=== PATIENT | male | born 1990 | race African-American/Black ===

== ENCOUNTER 2017-11-18 16:42 | Emergency (ER) | payer MEDICAID ==
[~2017-11-18] VITALS: Ht 195.6 cm; Wt 147.4 kg
[2017-11-18 16:53] VITALS: BP 113/65
[2017-11-18 17:29] VITALS: BP 114/65
== END 2017-11-18 17:29 | disposition home or self-care (01) ==
LOC: MED 16:42
DX: Z48.01 Encounter for change or removal of surgical wound dressing (principal)
CPT/HCPCS: 99283

== ENCOUNTER 2017-12-22 07:34 | Observation (INO) | payer MEDICAID ==
[2017-12-18 16:59] LABS: BASOPHILS # (AUTO) 0.1 K/uL (0.00-0.22); BASOPHILS % (AUTO) 0.7 % (0.0-2.0); EOSINOPHILS # (AUTO) 0.1 K/uL (0-0.4); EOSINOPHILS % (AUTO) 0.5 % (0.0-4.0); HEMATOCRIT 40.6 % (36-52); HEMOGLOBIN 13.2 g/dL (12.0-18.0); LYMPHOCYTES # (AUTO) 4.9 K/uL (2.0-11.5); LYMPHOCYTES % (AUTO) 43.2 % (20.5-51.1); MEAN CORPUSCULAR HEMOGLOBIN 29 pg (27-31); MEAN CORPUSCULAR HGB CONC 32 g/dL (33-37); MEAN CORPUSCULAR VOLUME 90.8 fL (80-94); MONOCYTES # (AUTO) 0.7 K/uL (0.8-1.0); MONOCYTES % (AUTO) 6.3 % (1.7-9.3); NEUTROPHILS # (AUTO) 5.6 K/uL (1.8-7.7); NEUTROPHILS % (AUTO) 49.3 % (42.2-75.2); PLATELET COUNT (AUTO) 277 K/uL (140-450); RED BLOOD CELL COUNT(AUTO) 4.48 MIL/uL (4.20-6.10); WHITE BLOOD COUNT (AUTO) 11.4 K/uL (4.8-10.8)
[2017-12-18 17:27] LABS: ALBUMIN 3.8 g/dL (3.4-5.0); ANION GAP 8.8 (8-16); CARBON DIOXIDE 28.2 mmol/L (21-32); CREATININE 1.3 mg/dL (0.7-1.3); TOTAL BILIRUBIN 0.4 mg/dL (0.0-1.0)
[~2017-12-22] VITALS: Ht 195.6 cm; Wt 147.4 kg
[2017-12-22] MEDS ORDERED: BUPIVACAINE-MPF 0.5% 10 ML VIAL INJ ONE (10:41)
[2017-12-22] MEDS ORDERED: hydrALAZINE 20 MG/ML VIAL IM ONE (10:59)
[2017-12-22] MEDS ORDERED: GLYCOPYRROLATE 0.2 MG/ML VIAL IV ONE (10:59)
[2017-12-22] MEDS ORDERED: LABETALOL 100 MG/20 ML VIAL IVP ONE (10:59)
[2017-12-22] MEDS ORDERED: KETAMINE 500 MG/5 ML VIAL ONE (11:08)
[2017-12-22] MEDS ORDERED: MIDAZOLAM 2 MG/2 ML VIAL ONE (11:09)
[2017-12-22] MEDS ORDERED: ONDANSETRON 4 MG/2 ML VIAL IVP PRN (11:15)
[2017-12-22] MEDS ORDERED: HYDROmorphone 1 MG/ML AMP IVP PRN ×2 (11:15→12:00)
[2017-12-22] MEDS ORDERED: BUPIVACAINE-MPF/EPI 0.25% 10 ML VIAL INJ ONE (11:44)
[2017-12-22] MEDS ORDERED: BUPIVACAINE-MPF/EPI 0.5% 30 ML VIAL INJ ONE (11:47)
[2017-12-22] MEDS ORDERED: MORPHINE SULFATE 2 MG/ML SYR IVP PRN (12:00)
[2017-12-22] MEDS ORDERED: ONDANSETRON 4 MG/2 ML VIAL IV PRN (12:00)
[2017-12-22] MEDS ORDERED: ACETAMINOPHEN 325 MG TAB PO PRN (12:00)
[2017-12-22] MEDS ORDERED: HYDROcodone/APAP 5/325 MG 1 TAB TAB PO PRN (12:00)
[2017-12-22] MEDS ORDERED: MORPHINE SULFATE 4 MG/ML SYR IV PRN (12:00)
--- NOTE | 2017-12-22 14:35 | NUR ---
PAGED DR BENOIT.
--- NOTE | 2017-12-22 14:50 | NUR ---
PATIENT BROUGHT TO UNIT FROM OR. HAS NASAL CANNULA AT 2LPM, HAS NO SIGNS AND SYMPTOMS OF ACUTE DISTRESS NOTED AT THIS TIME. HAS IV TO THE LEFT HAND 20G, INFUSING LR. SITE IS CLEAN, DRY, PATENT AND INTACT. PATIENT IS STATUS POST PILONIDAL CYST DRAINAGE. HAS DRESSING IN PLACE. ORIENTED PATIENT TO THE ROOM. EXPLAINED THE CALL LIGHT. PATIENT VERBALIZED UNDERSTANDING. BED IN LOWEST POSITION, SIDE RAILS UP X2, CALL LIGHT WITHIN REACH. WILL CONTINUE TO MONITOR.
[2017-12-22 16:00] VITALS: BP 134/62
--- NOTE | 2017-12-22 16:25 | NUR ---
HAVE NOT RECEIVED A CALL BACK FROM DR BENOIT YET. CALLED CELL AND LEFT A MESSAGE.
--- NOTE | 2017-12-22 18:30 | NUR ---
STARTED IV FLUIDS NORMAL SALINE AT 100 ML/HR.
[2017-12-22] MEDS: NACL 0.9% 1,000 ML IV SCH ×2 (18:31→23:58)
--- NOTE | 2017-12-22 19:20 | NUR ---
ENDORSED PATIENT TO CONTINUOUS PROCESS MACHINE OPERATOR RN FOR CONTINUITY OF CARE. PATIENT IN STABLE CONDITION.
--- NOTE | 2017-12-22 19:22 | NUR ---
RECEIVED PT AWAKE ON BED, ON ROOM AIR AT THIS TIME PT DOESN'T LIKE TO BE ON O2, VITAL SIGNS TAKEN, SAT-90% ON ROOM AIR, EDUCATION PROVIDED REGARDING THE NEED FOR OXYGEN AT THIS TIME, PUT BACK ON NASAL CANNULA AT 2L, SAT WENT UP TO 93-94%, ENCOURAGE PT TO KEEP NASAL CANNULA IN PLACE AND DO INCENTIVE SPIROMETER WHILE AWAKE, VERBALIZE UNDERSTANDING, DENIES ANY PAIN, DRESSING TO SACRAL AREA DRY AND INTACT WITH MINIMAL DRAINAGE NOTED, NO ACTIVE DRAINAGE OR BLEEDING AT THIS TIME, PLAN OF CARE DISCUSSED, SAFETY MEASURES IN PLACE, CALL LIGHT WITHIN REACH.
[2017-12-22 20:00] VITALS: BP 121/72
--- NOTE | 2017-12-22 21:20 | NUR ---
ROUNDS MADE, PT VOIDED FREELY PER URINAL, NASAL CANNULA IN PLACE, NO SIGNS OF RESP DISTRESS NOTED, INF INFUSING WELL, MONITORED CLOSELY.
[2017-12-23] VITALS: BP 111/51
--- NOTE | 2017-12-23 | NUR ---
PT SLEEPING, EASILY AROUSABLE, VITAL SIGNS STABLE, NASAL CANNULA IN PLACE SAT-93%, NO RESP DISTRESS NOTED, DENIES PAIN, IVF INFUSING WELL, CONTINUE TO MONITOR CLOSELY.
[2017-12-23 04:00] VITALS: BP 127/55
--- NOTE | 2017-12-23 04:10 | NUR ---
PT SLEEPING, AROUSABLE TO TOUCH, NASAL CANNULA NOT IN PLACE, VITAL SIGNS STABLE, SAT-90% ON ROOM AIR, PUT BACK NASAL CANNULA, SAT WENT UP TO 93%, DENIES PAIN, IVF INFUSING WELL, MONITORED CLOSELY.
--- NOTE | 2017-12-23 06:10 | NUR ---
PT AWAKE, SITTING ON HIGH FOWLERS POSITION, PT ASKING WHEN CAN HE GO HOME, STATED FEELING MUCH BETTER, TOLD HIM THAT WE HAVE TO WAIT FOR DR BENOIT, VERBALIZED UNDERSTANDING, DENIES ANY PAIN, NO EPISODE OF RESP DISTRESS THE WHOLE SHIFT, CONTINUE TO MONITOR.
--- NOTE | 2017-12-23 07:20 | NUR ---
PT AWAKE, NO SIGNS OF DISTRESS, REPORT GIVEN TO RN MATILDE FOR CONTINUITY OF CARE.
--- NOTE | 2017-12-23 07:22 | NUR ---
REPORT RECEIVED FROM RACKMAN GENE, PT RESTING QUIETLY IN NAD, RESP EVEN UNLABORED, SKIN WARM DRY COLOR WNL, SPEAKS CLEARLY, NO C/O PAIN OR SOB, NO IMMEDIATE NEEDS AT THIS TIME, PLAN OF CARE REVIEWED, ALL SAFETY MEASURES IN PLACE, WILL CONTINUE TO MONITOR
[2017-12-23] MEDS: NACL 0.9% 1,000 ML IV SCH (07:56)
[2017-12-23 08:00] VITALS: BP 120/64
--- NOTE | 2017-12-23 08:00 | NUR ---
O2 SAT 97% ON ROOM AIR, NO SOB, NO DIFFICULTY BREATHING.
--- NOTE | 2017-12-23 08:35 | NUR ---
PATIENT HAS BEEN SCREENED AND CATEGORIZED LOW NUTRITION RISK. PATIENT WILL BE SEEN WITHIN 7 DAYS OF ADMISSION. 12/29/[address]
--- NOTE | 2017-12-23 08:50 | NUR ---
DRESSING SOILED WITH STOOL, DRESSING AND PACKING CHANGED, PT SEAN WELL, AT BEDSIDE OBSERVED PROCEDURE AND VERBALIZED UNDERSTANDING AND AGREES TO DO DRESSING CHANGE AT HOME.
--- NOTE | 2017-12-23 09:05 | NUR ---
PT REQUESTS TO BE DISCHARGED SOON POSSIBLE, PT EXPLAINED THAT THERE IS NO DISCHARGE ORDER YET, DR BENOIT PAGED REQUESTED BY PATIENT.
--- NOTE | 2017-12-23 10:30 | NUR ---
NO ANSWER, DR BENOIT PAGED AGAIN, PT CONTINUES TO STATE HE WANTS TO LEAVE SOON
--- NOTE | 2017-12-23 11:55 | NUR ---
PT SIGNED AMA, LEAVING WITHOUT DC ORDER, PT EXPLAINED TO RETURN TO ER OR PCM OR DR BENOIT FOR ANY S/S OF INFECTION, SOB, DIFFICULTY BREATHING, CHEST PAIN OR OTHER CONCERNS, WOUND CARE SUPPLIED PROVIDED, AT BEDSIDE OBSERVED FIRST DRESSING CHANGE, STATES SHE UNDERSTANDS INSTRUCTIONS OF DRESSING CHANGE, IV D/C'D, CATH TIP INTACT, BLEEDING CONTROLLED, PT UP OUT OF BED WITHOUT PROBLEM, DC HOME NOW WITH .
== END 2017-12-23 11:55 | disposition left against medical advice (07) ==
LOC: MDS 07:34 → MMU 07:34 → MTU 12:47 → MDS 12:48 → MTU 12:48 → MDS 12-23 11:55 → MTU 12-23 11:55
PROVIDERS: ADMIT Surgery; ATTEND Surgery
DX: L05.91 Pilonidal cyst without abscess (principal)
CPT/HCPCS: 11770; 36415; 71045; 80053; 85025; 88304; 96374; G0378; J0360; J0690; J2250; J2270; J3490; J7030; J7060; J7120; Q0092